=== PATIENT | female | born 1990 | race Caucasian/White ===

== ENCOUNTER 2021-09-23 11:41 | Emergency (ER) | payer MEDICAID ==
[~2021-09-23] VITALS: Ht 157.5 cm; Wt 160.0 kg
[~2021-09-23 11:41] MED LIST: NITR100C11 PO; NO HOME MEDS; PHEN-786 PO
--- NOTE | 2021-09-23 12:15 | NUR ---
pt c/o bleeding started Tuesday slight, cramping. today old blood discharge. pain rlq. 09/20
[2021-09-23 12:19] LABS: BASOPHILS % (AUTO) 0.3 % (0-1); EOSINOPHILS # (AUTO) 0.3 X10'3 (0-0.9); EOSINOPHILS % (AUTO) 3.8 % (0-6); LYMPHOCYTES # (AUTO) 2.1 X10'3 (1.1-4.8); LYMPHOCYTES % (AUTO) 23.6 % (21-51); MEAN CORPUSCULAR HEMOGLOBIN 30.3 PG (27.0-31.0); MEAN CORPUSCULAR HGB CONC 34.3 g/dL (33.0-36.5); MEAN CORPUSCULAR VOLUME 88.5 FL (78-98); MEAN PLATELET VOLUME 7.9 FL (7.4-10.4); MONOCYTES # (AUTO) 0.6 X10'3 (0-0.9); MONOCYTES % (AUTO) 6.9 % (2-12); NEUTROPHILS # (AUTO) 5.8 X10'3 (1.8-7.7); NEUTROPHILS % (AUTO) 65.4 % (42-75); PLATELET COUNT 376 X10'3 (140-440); RED CELL DISTRIBUTION WIDTH 12.5 % (11.5-14.5); WHITE BLOOD COUNT 8.8 X10'3 (4.5-11.0)
[2021-09-23 12:40] LABS: ALANINE AMINOTRANSFERASE 24 U/L (12-78); ALBUMIN 4.1 G/DL (3.4-5.0); ALBUMIN/GLOBULIN RATIO 1.2 (1.1-1.5); ALKALINE PHOSPHATASE 61 IU/L (46-116); ANION GAP 11 (8-16); ASPARTATE AMINO TRANSFERASE 18 U/L (10-37); BILIRUBIN,TOTAL 0.4 MG/DL (0.1-1.0); BLOOD UREA NITROGEN 8 MG/DL (7-18); BUN/CREATININE RATIO 15.4 (6.6-38.0); CALCIUM 8.4 MG/DL (8.5-10.1); CHLORIDE 107 MMOL/L (99-107); CREATININE 0.52 MG/DL (0.40-0.90); GLUCOSE 97 MG/DL (70-104); LIPASE 115 U/L (73-393); POTASSIUM 3.7 MMOL/L (3.5-5.1); SODIUM 141 MMOL/L (135-145); TOTAL CARBON DIOXIDE 23.5 MMOL/L (24-32); TOTAL PROTEIN 7.6 G/DL (6.4-8.2); eGFR > 90 ML/MIN
[2021-09-23 12:42] LABS: CLARITY,URINE SLIGHTLY CLOUDY (Clear); GLUCOSE, URINE NEGATIVE (Neg); KETONES,URINE NEGATIVE (Neg); LEUKOCYTE ESTERASE ,URINE NEGATIVE (Neg); NITRITES, URINE NEGATIVE (Neg); OCCULT BLOOD,URINE TRACE-INTACT (Neg); PH,URINE 6.5 (4.8-8.0); PROTEIN,URINE NEGATIVE (Neg); UROBILINOGEN,URINE 0.2 E.U/dL (0.2-1.0)
[2021-09-23 12:44] LABS: URINE HCG POSITIVE (NEG)
[2021-09-23 12:48] LABS: COLOR,URINE STRAW (Yellow); SQUAMOUS EPITHELIAL CELL,UR FEW /LPF (FEW); UA COLLECTION TYPE CLN CATCH MIDSTREAM
[2021-09-23 12:49] LABS: BACTERIA,URINE FEW /HPF (Neg); RBC,URINE 0-2 /HPF (0-2); WBC,URINE 0-4 /HPF (0-4)
[2021-09-23 12:50] VITALS: BP 112/66
[2021-09-23 13:46] LABS: BETA HCG,QUANTITATIVE 1567 mIU/ml
--- NOTE | 2021-09-23 14:11 | NUR ---
us tech at bedside.
== END 2021-09-23 15:41 | disposition home or self-care (01) ==
LOC: ER 11:42
DX: O46.91 Antepartum hemorrhage, unspecified, first trimester (principal); J45.909 Unspecified asthma, uncomplicated; F41.9 Anxiety disorder, unspecified; F15.90 Other stimulant use, unspecified, uncomplicated; Z3A.00 Weeks of gestation of pregnancy not specified; Z86.19 Personal history of other infectious and parasitic diseases; Z87.01 Personal history of pneumonia (recurrent); Z88.2 Allergy status to sulfonamides; Z88.6 Allergy status to analgesic agent; Z88.1 Allergy status to other antibiotic agents; Z88.8 Allergy status to other drugs, medicaments and biological substances; Z79.899 Other long term (current) drug therapy
CPT/HCPCS: 36415; 76801; 76802; 76817; 76830; 80053; 81001; 81025; 83690; 84702; 85025; 86900; 86901; 93976; 99284

== ENCOUNTER 2021-09-25 11:21 | Emergency (ER) | payer MEDICAID ==
[~2021-09-25] VITALS: Ht 157.5 cm; Wt 72.7 kg
[2021-09-25 12:24] LABS: BASOPHILS % (AUTO) 0.3 % (0-1); EOSINOPHILS # (AUTO) 0.4 X10'3 (0-0.9); EOSINOPHILS % (AUTO) 5.5 % (0-6); HEMATOCRIT 37.8 % (35.0-45.0); HEMOGLOBIN 12.6 g/dl (12.0-16.0); LYMPHOCYTES # (AUTO) 1.7 X10'3 (1.1-4.8); LYMPHOCYTES % (AUTO) 25.5 % (21-51); MEAN CORPUSCULAR HEMOGLOBIN 29.6 PG (27.0-31.0); MEAN CORPUSCULAR HGB CONC 33.4 g/dL (33.0-36.5); MEAN CORPUSCULAR VOLUME 88.7 FL (78-98); MONOCYTES # (AUTO) 0.6 X10'3 (0-0.9); MONOCYTES % (AUTO) 9.5 % (2-12); NEUTROPHILS % (AUTO) 59.2 % (42-75); PLATELET COUNT 347 X10'3 (140-440); RED BLOOD COUNT 4.26 X10'6 (4.20-5.60); RED CELL DISTRIBUTION WIDTH 12.4 % (11.5-14.5); WHITE BLOOD COUNT 6.7 X10'3 (4.5-11.0)
[2021-09-25 12:26] LABS: ALANINE AMINOTRANSFERASE 20 U/L (12-78); ALBUMIN/GLOBULIN RATIO 1.1 (1.1-1.5); ALKALINE PHOSPHATASE 62 IU/L (46-116); ANION GAP 10 (8-16); ASPARTATE AMINO TRANSFERASE 10 U/L (10-37); BILIRUBIN,TOTAL 0.3 MG/DL (0.1-1.0); BLOOD UREA NITROGEN 8 MG/DL (7-18); BUN/CREATININE RATIO 13.1 (6.6-38.0); CHLORIDE 101 MMOL/L (99-107); CREATININE 0.61 MG/DL (0.40-0.90); GLUCOSE 93 MG/DL (70-104); POTASSIUM 3.8 MMOL/L (3.5-5.1); SODIUM 135 MMOL/L (135-145); TOTAL CARBON DIOXIDE 24.3 MMOL/L (24-32); TOTAL PROTEIN 7.5 G/DL (6.4-8.2); eGFR > 90 ML/MIN
[2021-09-25 12:36] LABS: BETA HCG,QUANTITATIVE 414 mIU/ml
--- NOTE | 2021-09-25 12:53 | NUR ---
pt refused transvaginal ultrasound. pt instructed to fill bladder and will repage ultrasound once bladder is full
--- NOTE | 2021-09-25 13:25 | NUR ---
US PAGED NOW THAT PT BLADDER IS FULL
[2021-09-25 14:30] LABS: CLARITY,URINE CLEAR (Clear); GLUCOSE, URINE NEGATIVE (Neg); KETONES,URINE NEGATIVE (Neg); LEUKOCYTE ESTERASE ,URINE NEGATIVE (Neg); NITRITES, URINE NEGATIVE (Neg); OCCULT BLOOD,URINE LARGE (Neg); PH,URINE 6.5 (4.8-8.0); PROTEIN,URINE NEGATIVE (Neg); UROBILINOGEN,URINE 0.2 E.U/dL (0.2-1.0)
[2021-09-25 14:31] LABS: COLOR,URINE STRAW (Yellow); UA COLLECTION TYPE CLN CATCH MIDSTREAM
[2021-09-25 14:37] LABS: BACTERIA,URINE FEW /HPF (Neg); MUCUS STRANDS NONE SEEN /LPF (Neg); RBC,URINE 0-2 /HPF (0-2); SQUAMOUS EPITHELIAL CELL,UR FEW /LPF (FEW); WBC,URINE NONE SEEN /HPF (0-4)
[2021-09-25 16:00] VITALS: BP 112/76
[2021-09-25] MEDS ORDERED: ondansetron/PF 4mg/2ml inj IV ONE (16:15)
[2021-09-25] MEDS ORDERED: normal saline 1000ML IV soln IVB ONE (16:15)
[2021-09-25] MEDS ORDERED: CefTRIAXone 2gm/NS 100ml IVPB 100 ML IV ONE (16:15)
--- NOTE | 2021-09-25 16:54 | NUR ---
REPORT CALLED TO [facility] AND GIVEN REPORT TO SUZI [email or web address] PT CONDITION VITO NAY QUES OR CONCERN PT IS ER TO ER TRANSFER.
== END 2021-09-25 17:10 | disposition short-term general hospital (02) ==
LOC: ER 11:22
DX: O03.9 Complete or unspecified spontaneous abortion without complication (principal); Z20.822 Contact with and (suspected) exposure to COVID-19; O99.511 Diseases of the respiratory system complicating pregnancy, first trimester; J45.909 Unspecified asthma, uncomplicated; O99.321 Drug use complicating pregnancy, first trimester; F15.90 Other stimulant use, unspecified, uncomplicated; Z87.01 Personal history of pneumonia (recurrent); Z86.19 Personal history of other infectious and parasitic diseases; Z88.2 Allergy status to sulfonamides; Z88.1 Allergy status to other antibiotic agents; Z88.8 Allergy status to other drugs, medicaments and biological substances; Z79.899 Other long term (current) drug therapy; Z3A.01 Less than 8 weeks gestation of pregnancy
CPT/HCPCS: 36415; 76801; 76817; 80053; 81001; 84702; 85025; 85610; 87635; 96365; 96375; 99291; C9803; J0696; J2405; J7030; 99284

== ENCOUNTER 2024-02-03 08:40 | Emergency (ER) | payer MEDICAID ==
[~2024-02-03] VITALS: Ht 152.4 cm; Wt 73.3 kg
[2024-02-03 08:43] VITALS: TEMP 98.2
[2024-02-03] MEDS: ipratropium/albuterol 3ml nebule NEB ONE (09:06)
[2024-02-03] MEDS: predniSONE 20 mg tablet PO ONE (09:07)
[2024-02-03 09:09] VITALS: PULSE 74; RESP 16; O2SAT 93
[2024-02-03 09:13] VITALS: PULSE 89; RESP 14; O2SAT 92
[2024-02-03] MEDS: albuterol 2.5 MG/3 ML nebule CONTNEB PRN (10:11)
[2024-02-03 10:21] VITALS: PULSE 71; RESP 16; O2SAT 95
[2024-02-03] MEDS ORDERED: ALBU18HF2 INH (11:05)
[2024-02-03] MEDS ORDERED: PRED20TA PO (11:05)
[2024-02-03 11:21] VITALS: PULSE 87; RESP 16; O2SAT 99
[2024-02-03 11:56] VITALS: BP 102/57; PULSE 84; RESP 18; O2SAT 98
== END 2024-02-03 11:57 | disposition home or self-care (01) ==
LOC: ER 08:41
DX: J45.901 Unspecified asthma with (acute) exacerbation (principal); F41.9 Anxiety disorder, unspecified; F15.90 Other stimulant use, unspecified, uncomplicated; Z88.2 Allergy status to sulfonamides; Z79.899 Other long term (current) drug therapy; Z79.1 Long term (current) use of non-steroidal anti-inflammatories (NSAID); Z79.2 Long term (current) use of antibiotics
CPT/HCPCS: 71045; 94640; 94644; 99285; J7512; 94760; A7015